=== PATIENT | male | born 1965 | race Caucasian/White ===

== ENCOUNTER 2020-07-03 09:24 | Emergency (ER) | payer OTHER ==
--- OUTSIDE RECORDS SUMMARY | 2020-07-03 09:26 | XMS REPORT | Continuity of Care Document ---
:1965 Author Organization [facility] t Address [address] [place] [address] Care Team Providers Name Role Phone Doctor Unassigned, Name Attending Clinician Unavailable Keesha RN Attending Clinician Problems This patient has no known problems. Allergies, Adverse Reactions, Alerts This patient has no known allergies or adverse reactions. Medications This patient has no known medications. Procedures This patient has no known procedures. Encounters Start End Encounter Admission Attending Care Care Encounter Source Date/Time Date/Time Type Type Clinicians Facility Department ID 2019-07-19 2019-07-19 Orders Doctor ABDIRASHID [id number] 00:00:00 00:00:00 Only UnassignedHEMALATHA [id number] [place] [facility] [id number] 2019-07-16 2019-07-16 Transition Bentley Thao [id number] 00:00:00 00:00:00 of Care Michelle Quiroz [id number] [place] [id number] Results This patient has no known results.
[2020-07-03] MEDS ORDERED: KETOROLAC 30 MG/ML INJ ONE (10:24)
[2020-07-03] MEDS ORDERED: ONDANSETRON 4 MG/2 ML VIAL ONE (10:24)
--- NOTE | 2020-07-03 10:41 | RAD REPORT ---
EXAM DESCRIPTION: CT - Stone Protocol - 07/03/2020 10:13 am CLINICAL HISTORY: Abdominal pain. Flan pain COMPARISON: None. TECHNIQUE: Computed axial tomography of the abdomen pelvis was obtained without oral or IV contrast. Lack of IV and oral contrast limits evaluation of solid organs, bowel, and vessels. Coronal reformat asya images were obtained and reviewed. All CT scans are performed using dose optimization technique as appropriate and may include automated exposure control or mA/KV adjustment according to patient size. FINDINGS: 2 millimeters calculus right kidney. No hydronephrosis 1 millimeter calculus left kidney. Mild left hydronephrosis. A 5 millimeter calculus distal left uret er. Hounsfield unit 1096 The liver, spleen, pancreas and adrenals appear grossly normal There is no evidence of diverticulitis. The appendix appears normal. Small left inguinal hernia conta ins fat IMPRESSION: A 5 millimeter calculus distal left ureter resulting in mild left hydronephrosis
[2020-07-03 10:48] LABS: Absolute Lymphocytes (CBC) 2.3 K/uL (0.7-4.9); Basophils % 1.2 % (0-1.3); Lymphocytes % 21.7 % (15.3-44.8); MPV 8.1 fL (7.6-11.3); RBC Red Blood Cell Count 4.78 M/uL (4.33-5.43)
[2020-07-03 11:00] LABS: Albumin 3.5 g/dL (3.4-5.0); Bilirubin Direct 0.3 mg/dL (0-0.2); Potassium 3.4 mmol/L (3.5-5.1); Protein, Total 6.8 g/dL (6.4-8.2)
[2020-07-03] MEDS ORDERED: NA CHLORIDE 0.9% 500 ML ONE (11:21)
--- NOTE | 2020-07-03 11:55 | EDPHYS ---
Physician Documentation [facility] Name: Elbert Edwards Age: 55 yrs Sex: Male : 1965 Arrival Date: 07/03/2020 Time: 09:24 Bed 7 Private MD: ED Physician Carrillo Mendoza HPI: 07/03 10:57 This 55 yrs old Male presents to ER via Wheelchair with complaints of Kidney jr8 Stone. 10:57 Onset: The symptoms/episode began/occurred acutely, today. Associated signs and jr8 symptoms: Pertinent positives: abdominal pain. Modifying factors: The patient symptoms are alleviated by nothing, the patient symptoms are aggravated by nothing. The patient has experienced similar episodes in the past, a few times. The patient has not recently seen a physician. Patient stated that he has history of kidney stones in past. Usually on right side but now with left lower abdominal pain and flank pain radiating to the back . Historical: - Allergies: 09:41 PENICILLINS; bp - Home Meds: 09:41 Unable to obtain [Active]; bp - PMHx: 09:41 Anxiety; Depression; SLEEP D/O; bp - Immunization history:: Adult Immunizations not up to date. - Social history:: Smoking status: Patient reports the use of cigarette tobacco products, unknown amount. ROS: 10:57 Eyes: Negative for injury, pain, redness, and discharge, ENT: Negative for injury, jr8 pain, and discharge, Neck: Negative for injury, pain, and swelling, Cardiovascular: Negative for chest pain, palpitations, and edema, Respiratory: Negative for shortness of breath, cough, wheezing, and pleuritic chest pain, MS/Extremity: Negative for injury and deformity, Skin: Negative for injury, rash, and discoloration, Neuro: Negative for headache, weakness, numbness, tingling, and seizure. 10:57 Abdomen/GI: Positive for abdominal pain, Negative for nausea, vomiting, and diarrhea. 10:57 Back: Positive for flank pain, on the left. Exam: 10:57 Cardiovascular: Regular rate and rhythm with a normal S1 and S2. No gallops, murmurs, jr8 or rubs. Normal PMI, no JVD. No pulse deficits. Respiratory: Lungs have equal breath sounds bilaterally, clear to auscultation and percussion. No rales, rhonchi or wheezes noted. No increased work of breathing, no retractions or nasal flaring. Skin: Warm, dry with normal turgor. Normal color with no rashes, no lesions, and no evidence of cellulitis. MS/ Extremity: Pulses equal, no cyanosis. Neurovascular intact. Full, normal range of motion. Neuro: Awake and alert, GCS 15, oriented to person, place, time, and situation. Cranial nerves II-XII grossly intact. Motor strength 5/5 in all extremities. Sensory grossly intact. Cerebellar exam normal. Normal gait. 10:57 Abdomen/GI: Inspection: abdomen appears normal, Bowel sounds: active, all quadrants, Palpation: soft, in all quadrants, moderate abdominal tenderness, in the anterior aspect of left lateral abdomen and left lower quadrant, mass, is not appreciated, rebound tenderness, is not appreciated, voluntary guarding, is not appreciated, involuntary guarding, is not appreciated, no appreciated organomegaly, Indicators: McBurney's point is not tender, Arias's sign is negative, Rovsing's sign is negative, Liver: tenderness, is not appreciated. 10:57 Back: pain, that is mild, ROM is normal, normal spinal alignment noted, CVA tenderness, that is moderate, is noted on the left, vertebral tenderness, is not appreciated. Vital Signs: 09:40 Weight 81.65 kg; Height 5 ft. 6 in. (167.64 cm); bp 09:45 BP 108 / 92; Pulse 100; Resp 16; Temp 98.4; Pulse Ox 98% ; bp 10:30 BP 108 / 70; Pulse 83; Resp 16; Pulse Ox 97% ; bp 12:21 BP 125 / 89; Pulse 78; Resp 16; Temp 98.5; Pulse Ox 96% ; bp 09:40 Body Mass Index 29.05 (81.65 kg, 167.64 cm) bp MDM: 09:39 Patient medically screened. jr8 11:54 Data reviewed: vital signs, nurses notes, lab test result(s), radiologic studies, CT jr8 scan. Data interpreted: Pulse oximetry: on room air is 97 %. Interpretation: normal. Counseling: I had a detailed discussion with the patient and/or guardian regarding: the historical points, exam findings, and any diagnostic results supporting the discharge/admit diagnosis, lab results, radiology results, the need for outpatient follow up, a urologist, to return to the emergency department if symptoms worsen or persist or if there are any questions or concerns that arise at home. Response to treatment: the patient's symptoms have markedly improved after treatment. 07/03 09:39 Order name: Basic Metabolic Panel; Complete Time: 11:03 07/03 09:39 Order name: CBC with Diff; Complete Time: 11:07/03 09:39 Order name: Hepatic Function; Complete Time: 11:07/03 09:39 Order name: Lipase; Complete Time: 11:07/03 09:57 Order name: CT Stone Protocol; Complete Time: 10:47 07/03 12:03 Order name: Urine Dipstick--Ancillary (enter results); Complete Time: 12:27 [facility] 07/03 09:39 Order name: IV Saline Lock; Complete Time: 09:54 07/03 09:39 Order name: Labs collected and sent; Complete Time: 09:54 07/03 09:39 Order name: Urine Dipstick-Ancillary (obtain specimen); Complete Time: 11:55 07/03 10:10 Order name: Labs - recollect needed: cbc and chem7; Complete Time: 10:30 aa5 Administered Medications: 10:15 Drug: TORadol - Ketorolac 15 mg Route: IVP; Site: right forearm; bp 11:05 Follow up: Response: Pain is decreased bp 10:15 Drug: Zofran (Ondansetron) 4 mg Route: IVP; Site: right forearm; bp 11:05 Follow up: Response: No adverse reaction bp 11:10 Drug: NS 0.9% 500 ml Route: IV; Rate: bolus; Site: right forearm; bp 12:23 Follow up: IV Status: Completed infusion; IV Intake: 500ml bp Disposition: 18:36 Co-signature as Attending Physician, Carrillo Mendoza MD. rn Disposition: 07/03/20 11:55 Discharged to Home. Impression: Hydronephrosis with renal and ureteral calculous obstruction. - Condition is Stable. - Discharge Instructions: Kidney Stones, Hydronephrosis. - Prescriptions for Cipro 500 mg Oral Tablet - take 1 tablet by ORAL route every 12 hours for 7 days; 14 tablet. Zofran 4 mg Oral Tablet - take 1 tablet by ORAL route every 12 hours As needed; 20 tablet. Flomax 0.4 mg Oral Capsule, Sust. Release 24 hr - take 1 capsule by ORAL route once daily 1/2 hour following the same meal each day; 30 capsule. - Medication Reconciliation Form, Thank You Letter, Antibiotic Education, Prescription Opioid Use form. - Follow up: Noah Ochoa MD; When: 2 - 3 days; Reason: Recheck today's complaints, Continuance of care, Re-evaluation by your physician. - Problem is new. - Symptoms have improved. Signatures: Dispatcher [employer] EDMS Carrillo Mendoza MD MD rn Ann Vazquez RN RN aa5 Dorian Cook PA PA jr8 Tevin Coto, RN RN bp Corrections: (The following items were deleted from the chart) 12:30 11:55 07/03/2020 11:55 Discharged to Home. Impression: Hydronephrosis with renal and bp ureteral calculous obstruction. Condition is Stable. Forms are Medication Reconciliation Form, Thank You Letter, Antibiotic Education, Prescription Opioid Use. Follow up: Noah Ochoa; When: 2 - 3 days; Reason: Recheck today's complaints, Continuance of care, Re-evaluation by your physician. Problem is new. Symptoms have improved. jr8
--- NOTE | 2020-07-03 11:55 | ER ---
Nurse's Notes [facility] Name: Elbert Edwards Age: 55 yrs Sex: Male : 1965 Arrival Date: 07/03/2020 Time: 09:24 Bed 7 Private MD: Diagnosis: Hydronephrosis with renal and ureteral calculous obstruction Presentation: 07/03 09:40 Chief complaint: Patient states: LEFT FLANK PAIN SINCE TUESDAY. Coronavirus screen: At bp this time, the client does not indicate any symptoms associated with coronavirus-19. Ebola Screen: No symptoms or risks identified at this time. Initial Sepsis Screen: Does the patient meet any 2 criteria? No. Patient's initial sepsis screen is negative. Does the patient have a suspected source of infection? No. Patient's initial sepsis screen is negative. Risk Assessment: Do you want to hurt yourself or someone else? Patient reports no desire to harm self or others. Onset of symptoms is unknown. 09:40 Method Of Arrival: Wheelchair bp 09:40 Acuity: SOURAV 3 bp Triage Assessment: 09:41 General: Appears in no apparent distress. uncomfortable, Behavior is cooperative, bp appropriate for age, anxious. Pain: Complains of pain in left flank. EENT: No deficits noted. Neuro: No deficits noted. Cardiovascular: No deficits noted. Respiratory: No deficits noted. GI: No signs and/or symptoms were reported involving the gastrointestinal system. : Reports pain in left flank(s). Derm: No deficits noted. Musculoskeletal: No deficits noted. Historical: - Allergies: 09:41 PENICILLINS; bp - Home Meds: 09:41 Unable to obtain [Active]; bp - PMHx: 09:41 Anxiety; Depression; SLEEP D/O; bp - Immunization history:: Adult Immunizations not up to date. - Social history:: Smoking status: Patient reports the use of cigarette tobacco products, unknown amount. Screenin:47 Abuse screen: Denies threats or abuse. Denies injuries from another. Nutritional bp screening: No deficits noted. Tuberculosis screening: No symptoms or risk factors identified. Fall Risk None identified. Assessment: 09:47 General: SEE TRIAGE NOTE. bp 10:31 Reassessment: PT RETURNED FROM CT. UOP PENDING. bp 12:21 Reassessment: PT D/C HOME VIA W/C, DX WITH HYDRONEPHROSIS. bp Vital Signs: 09:40 Weight 81.65 kg; Height 5 ft. 6 in. (167.64 cm); bp 09:45 BP 108 / 92; Pulse 100; Resp 16; Temp 98.4; Pulse Ox 98% ; bp 10:30 BP 108 / 70; Pulse 83; Resp 16; Pulse Ox 97% ; bp 12:21 BP 125 / 89; Pulse 78; Resp 16; Temp 98.5; Pulse Ox 96% ; bp 09:40 Body Mass Index 29.05 (81.65 kg, 167.64 cm) bp ED Course: 09:24 Patient arrived in ED. ds1 09:30 Dorian Cook PA is PHCP. jr8 09:30 Carrillo Mendoza MD is Attending Physician. jr8 09:41 Triage completed. bp 09:41 Arm band placed on. bp 09:45 Initial lab(s) drawn, by ED staff, sent to lab. Inserted saline lock: 22 gauge in right kj1 antecubital area, using aseptic technique. 09:47 Patient has correct armband on for positive identification. Bed in low position. Call bp light in reach. Side rails up X2. 09:54 Tevin Coto, LAUREN is Primary Nurse. bp 10:12 CT Stone Protocol In Process Unspecified. EDMS 11:55 Noah Ochoa MD is Referral Physician. jr8 12:21 No provider procedures requiring assistance completed. IV discontinued, intact, bp bleeding controlled, No redness/swelling at site. Pressure dressing applied. Administered Medications: 10:15 Drug: TORadol - Ketorolac 15 mg Route: IVP; Site: right forearm; bp 11:05 Follow up: Response: Pain is decreased bp 10:15 Drug: Zofran (Ondansetron) 4 mg Route: IVP; Site: right forearm; bp 11:05 Follow up: Response: No adverse reaction bp 11:10 Drug: NS 0.9% 500 ml Route: IV; Rate: bolus; Site: right forearm; bp 12:23 Follow up: IV Status: Completed infusion; IV Intake: 500ml bp Intake: 12:23 IV: 500ml; Total: 500ml. bp Outcome: 11:55 Discharge ordered by . jr8 12:21 Discharged to home via wheelchair. bp 12:21 Condition: stable 12:21 Discharge instructions given to patient, Instructed on discharge instructions, follow up and referral plans. medication usage, Demonstrated understanding of instructions, follow-up care, medications, Prescriptions given X 3. 12:30 Patient left the ED. bp Signatures: Dispatcher [employer] EDCA Verena Spence ds1 Dorian Cook PA PA jr8 Tevin Coto, RN RN Leonie Harvey kj1
[2020-07-03 12:26] LABS: Urine Blood 1+ (NEG); Urine Glucose NEGATIVE (NEG); Urine Protein 1+ (NEG); Urine Specific Gravity >1.030 (1.005-1.030); Urine pH 5.5 (5.0-7.0)
[2020-07-07 23:41] VITALS: BP 125/89; TEMP 98.5; O2SAT 96
== END 2020-07-03 12:30 | disposition home or self-care (01) ==
LOC: ER 09:24
DX: N13.2 Hydronephrosis with renal and ureteral calculous obstruction (principal); F17.210 Nicotine dependence, cigarettes, uncomplicated; Z88.0 Allergy status to penicillin
CPT/HCPCS: 96361; 85025; 80048; 36415; 80076; 81003; 83690; 76377; 74176; 96375; 96374; 99284; J7040; J2405

== ENCOUNTER 2021-03-18 05:46 | Emergency (ER) | payer OTHER ==
--- OUTSIDE RECORDS SUMMARY | 2021-03-18 05:47 | XMS REPORT | Continuity of Care Document ---
:1965 Author Organization [facility] t Address [address] [place] [address] Care Team Providers Name Role Phone Doctor [...] ID 2019-07-19 2019-07-19 Orders Doctor ABDIRASHID [id number] 00:00:00 00:00:00 Only UnassignedHEMALATHA [id number] [place] [facility] [id number] 2019-07-16 2019-07-16 Transition Bentley Thao [id number] 00:00:00 00:00:00 of Care Michelle Quiroz [id number] [place] [id number] Results This patient has no known results.
--- NOTE | 2021-03-18 06:51 | EDPHYS ---
Physician Documentation [facility] Name: Elbert Edwards Age: 56 yrs Sex: Male : 1965 Arrival Date: 03/18/2021 Time: 05:49 Bed 18 Private MD: ED Physician Jah Landa HPI: 03/18 06:40 This 56 yrs old Male presents to ER via Wheelchair with complaints of tw4 Shoulder Injury. 06:40 The patient or guardian complains of an injury, pain, that is acute. right shoulder. tw4 Context: The problem was sustained at home. Onset: The symptoms/episode began/occurred today. Modifying factors: the symptoms are alleviated by nothing. The symptoms are aggravated by nothing. The patient has not experienced similar symptoms in the past. 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 - Social history:: Smoking status: Patient reports the use of cigarette tobacco products, smokes one pack cigarettes per day. ROS: 06:40 Constitutional: Negative for fever, chills, and weight loss, Eyes: Negative for injury, tw4 pain, redness, and discharge, Cardiovascular: Negative for chest pain, palpitations, and edema, Respiratory: Negative for shortness of breath, cough, wheezing, and pleuritic chest pain, Abdomen/GI: Negative for abdominal pain, nausea, vomiting, diarrhea, and constipation, Back: Negative for injury and pain, Skin: Negative for injury, rash, and discoloration, Neuro: Negative for headache, weakness, numbness, tingling, and seizure, Psych: Negative for depression, anxiety, suicide ideation, homicidal ideation, and hallucinations. 06:40 MS/extremity: Positive for injury or acute deformity, decreased range of motion, pain. Exam: 06:40 Constitutional: This is a well developed, well nourished patient who is awake, alert, tw4 and in no acute distress. Head/Face: Normocephalic, atraumatic. Chest/axilla: Normal chest wall appearance and motion. Nontender with no deformity. No lesions are appreciated. Cardiovascular: Regular rate and rhythm with a normal S1 and S2. No gallops, murmurs, or rubs. Normal PMI, no JVD. No pulse deficits. Respiratory: Lungs have equal breath sounds bilaterally, clear to auscultation and percussion. No rales, rhonchi or wheezes noted. No increased work of breathing, no retractions or nasal flaring. Abdomen/GI: Soft, non-tender, with normal bowel sounds. No distension or tympany. No guarding or rebound. No evidence of tenderness throughout. Back: No spinal tenderness. No costovertebral tenderness. Full range of motion. Skin: Warm, dry with normal turgor. Normal color with no rashes, no lesions, and no evidence of cellulitis. 06:40 Musculoskeletal/extremity: Extremities: noted in the anterior aspect of right shoulder: decreased ROM, pain. Vital Signs: 06:06 BP 134 / 88; Pulse 75; Resp 16; Temp 97.7; Pulse Ox 95% on R/A; Weight 78.47 kg; Height iw 5 ft. 6 in. (167.64 cm); Pain 9/10; 06:06 Body Mass Index 27.92 (78.47 kg, 167.64 cm) iw MDM: 06:21 Patient medically screened. tw4 06:40 Differential diagnosis: humeral head fracture, glenoid fracture, tendonitis. Data tw4 reviewed: vital signs, nurses notes, radiologic studies, plain films. Data interpreted: Pulse oximetry: Interpretation: normal. Counseling: I had a detailed discussion with the patient and/or guardian regarding: the historical points, exam findings, and any diagnostic results supporting the discharge/admit diagnosis, radiology results. 06:47 Medication response: Toradol markedly relieved the patient's pain. Response to tw4 treatment: and as a result, I will discharge patient. Special discussion: I discussed with the patient/guardian in detail that at this point there is no indication for admission to the hospital. It is understood, however, that if the symptoms persist or worsen the patient needs to return immediately for re-evaluation. 03/18 06:13 Order name: Shoulder Right (2 View) XRAY tw4 Administered Medications: 06:44 Drug: TORadol (ketorolac) 60 mg {Note: 30 mg right deltoid 30 mg left deltoid.} Route: jm8 IM; Site: right deltoid; 07:04 Follow up: Response: No adverse reaction jm8 06:44 Drug: [place] (HYDROcodone-acetaminophen) 5 mg-325 mg 1 tabs Route: PO; jm8 07:03 Follow up: Response: No adverse reaction jm8 Disposition: 03/18/21 06:50 Discharged to Home. Impression: Shoulder lesion, unspecified, right shoulder. - Condition is Stable. - Discharge Instructions: Contusion, Shoulder Pain, Shoulder Sprain. - Prescriptions for Tramadol 50 mg Oral Tablet - take 1 tablet by ORAL route every 8 hours as needed; 12 tablet. - Medication Reconciliation Form, Thank You Letter, Antibiotic Education, Prescription Opioid Use form. - Follow up: Private Physician; When: Upon discharge from the Emergency Department; Reason: Recheck today's complaints, Continuance of care, Re-evaluation by your physician. - Problem is new. - Symptoms have improved. Signatures: Dispatcher [employer] EDLiat Salinas RN Jah Mercado MD MD tw4 Kerwin Ortiz RN RN jm8 Corrections: (The following items were deleted from the chart) 07:05 06:50 03/18/2021 06:50 Discharged to Home. Impression: Shoulder lesion, unspecified, jm8 right shoulder. Condition is Stable. Forms are Medication Reconciliation Form, Thank You Letter, Antibiotic Education, Prescription Opioid Use. Follow up: Private Physician; When: Upon discharge from the Emergency Department; Reason: Recheck today's complaints, Continuance of care, Re-evaluation by your physician. Problem is new. Symptoms have improved. tw4
--- NOTE | 2021-03-18 06:51 | ER ---
Nurse's Notes [facility] Name: Elbert Edwards Age: 56 yrs Sex: Male : 1965 Arrival Date: 03/18/2021 Time: 05:49 Bed 18 Private MD: Diagnosis: Shoulder lesion, unspecified, right shoulder Presentation: 03/18 06:06 Chief complaint: Patient states: injured his left shoulder a couple weeks ago iw lifting/moving furniture, is due for an MRI tomorrow per Dr. Skinner, fell last night while trying to get out of the bathroom, leg got caught up in his shorts , hit the nightstand with right shoulder , now pain is intolerable. Coronavirus screen: At this time, the client does not indicate any symptoms associated with coronavirus-19. Ebola Screen: Patient negative for fever greater than or equal to 101.5 degrees Fahrenheit, and additional compatible Ebola Virus Disease symptoms Patient denies exposure to infectious person. Patient denies travel to an Ebola-affected area in the 21 days before illness onset. No symptoms or risks identified at this time. Initial Sepsis Screen: Does the patient meet any 2 criteria? No. Patient's initial sepsis screen is negative. Does the patient have a suspected source of infection? No. Patient's initial sepsis screen is negative. Risk Assessment: Do you want to hurt yourself or someone else? Patient reports no desire to harm self or others. Onset of symptoms was March 05, 2021. 06:06 Method Of Arrival: Wheelchair iw 06:06 Acuity: SOURAV 3 iw Triage Assessment: 06:24 Injury Description: none. jm8 Historical: - Allergies: 06:10 PENICILLINS; iw - PMHx: 06:10 Depression; SLEEP D/O; Anxiety; Kidney stones; Seizures; iw - PSHx: 06:10 AKA; finger amputation; iw - Immunization history:: Adult Immunizations not up to date, Client reports receiving the 2nd dose of the Covid vaccine. - Social history:: Smoking status: Patient reports the use of cigarette tobacco products, smokes one pack cigarettes per day. Screenin:24 Abuse screen: Denies threats or abuse. Denies injuries from another. Nutritional jm8 screening: No deficits noted. Tuberculosis screening: No symptoms or risk factors identified. Fall Risk Fall in past 12 months (25 points). Assessment: 06:21 General: Appears in no apparent distress. comfortable, Behavior is calm, cooperative, jm8 appropriate for age. Pain: Complains of pain in right shoulder Pain currently is 10 out of 10 on a pain scale. Aggravated by fall on shoulder last night. Neuro: No deficits noted. Level of Consciousness is awake, alert, obeys commands, Oriented to person, place, time. Cardiovascular: No deficits noted. Respiratory: No deficits noted. Airway is patent Trachea midline Respiratory effort is even, unlabored, Respiratory pattern is regular. GI: No deficits noted. No signs and/or symptoms were reported involving the gastrointestinal system. : No deficits noted. No signs and/or symptoms were reported regarding the genitourinary system. EENT: No deficits noted. No signs and/or symptoms were reported regarding the EENT system. Derm: No deficits noted. No signs and/or symptoms reported regarding the dermatologic system. Musculoskeletal: Reports pain in right shoulder after falling on it last night Pain is 10 out of 10 on a pain scale. Vital Signs: 06:06 BP 134 / 88; Pulse 75; Resp 16; Temp 97.7; Pulse Ox 95% on R/A; Weight 78.47 kg; Height iw 5 ft. 6 in. (167.64 cm); Pain 9/10; 06:06 Body Mass Index 27.92 (78.47 kg, 167.64 cm) iw ED Course: 05:49 Patient arrived in ED. am4 06:09 Triage completed. iw 06:10 Arm band placed on. iw 06:21 Jah Landa MD is Attending Physician. tw4 06:25 Patient has correct armband on for positive identification. Bed in low position. Call jm8 light in reach. Side rails up X2. Adult w/ patient. 06:32 Shoulder Right (2 View) XRAY In Process Unspecified. EDMS 07:04 No provider procedures requiring assistance completed. Patient did not have IV access jm8 during this emergency room visit. Administered Medications: 06:44 Drug: TORadol (ketorolac) 60 mg {Note: 30 mg right deltoid 30 mg left deltoid.} Route: jm8 IM; Site: right deltoid; 07:04 Follow up: Response: No adverse reaction [facility] 06:44 Drug: [place] (HYDROcodone-acetaminophen) 5 mg-325 mg 1 tabs Route: PO; jm8 07:03 Follow up: Response: No adverse reaction jm8 Outcome: 06:50 Discharge ordered by . randall 07:04 Discharged to home via wheelchair. jm8 07:04 Condition: good 07:04 Discharge instructions given to patient, family, Instructed on discharge instructions, follow up and referral plans. medication usage, Demonstrated understanding of instructions, follow-up care, medications, Prescriptions given X 1. 07:05 Patient left the ED. jm8 Signatures: Dispatcher [employer] EDLiat Salinas, RN RN Jah Billy MD MD tw4 Shahana Gomez am4 Kerwin Ortiz RN RN jm8 Corrections: (The following items were deleted from the chart) 06:29 06:21 Pain: Complains of pain in left shoulder Pain currently is 10 out of 10 on a pain 8 scale. Aggravated by fall on shoulder last night jm8 :29 06:21 Musculoskeletal: Reports pain in left shoulder after falling on it last night [facility] Pain is 10 out of 10 on a pain scale. jm8
[2021-03-18] MEDS ORDERED: KETOROLAC 30 MG/ML INJ ONE (06:52)
[2021-03-18] MEDS ORDERED: HYDROCODONE/APAP 5/325 MG TAB ONE (06:53)
[2021-03-18 07:11] VITALS: BP 134/88; TEMP 97.7; O2SAT 95
--- NOTE | 2021-03-18 08:41 | RAD REPORT ---
EXAM DESCRIPTION: RAD - Shoulder Right 2 View - 03/18/2021 6:32 am CLINICAL HISTORY: PAIN COMPARISON: No comparisons FINDINGS: Mild AC joint and glenohumeral joint arthritic changes are seen. No acute fracture or disl ocation seen.
== END 2021-03-18 07:05 | disposition home or self-care (01) ==
LOC: ER 05:46
DX: M75.91 Shoulder lesion, unspecified, right shoulder (principal); F17.210 Nicotine dependence, cigarettes, uncomplicated; Z88.0 Allergy status to penicillin
CPT/HCPCS: 96372; 99283